=== PATIENT | male | born 1990 | race Two or more races ===

== ENCOUNTER 2023-08-03 00:24 | Emergency (ER) | payer MEDICAID ==
[~2023-08-03] VITALS: Ht 162.6 cm; Wt 71.5 kg
[2023-08-03 00:29] VITALS: BP 129/78; PULSE 101; RESP 24; TEMP 97.5
[2023-08-03] MEDS ORDERED: IBUP-1456 PO (02:54)
[2023-08-03] MEDS ORDERED: IBUPROFEN 800 MG TAB PO ONE ×2 (03:00→03:30)
[2023-08-03 03:13] VITALS: O2SAT 96
== END 2023-08-03 02:00 | disposition left against medical advice (07) ==
LOC: ER 00:28
DX: R07.81 Pleurodynia (principal)
CPT/HCPCS: 71101